=== PATIENT | female | born 1935 | race Caucasian/White ===

== ENCOUNTER 2016-11-10 15:54 | Emergency (ER) | payer OTHER, BC ==
[~2016-11-10] VITALS: Ht 167.6 cm; Wt 55.9 kg
[~2016-11-10 15:54] MED LIST: ASPIR 8181 M1 PO; ATENOLOL25 MG PO; CALCIUM 500 +1 EACH PO; CYANOCOBALAM1000 MCG PO; MECLIZINE HCL25 MG PO; SIMVASTATIN10 MG PO; VITAMIN D1000 INTUN PO; VYTORIN 10-201 EACH PO
[2016-11-10] MEDS ORDERED: DONEPEZIL HCL10 MG PO (16:35)
[2016-11-10 17:36] LABS: CHLORIDE 104 mEq/L (99-109); POTASSIUM 3.9 mEq/L (3.7-5.4); SODIUM 140 mEq/L (136-147)
[2016-11-10 17:38] LABS: GLUCOSE 96 mg/dL (70-99)
[2016-11-10 17:40] LABS: ANION GAP 10 MEQ/L (2-14); TOTAL BILIRUBIN 0.5 mg/dL (0.0-1.0)
[2016-11-10 17:42] LABS: ALKALINE PHOSPHATASE 61 IU/L (3-129); GFR ESTIMATE (CALCULATED) > 59 mL/min/
[2016-11-10 17:43] LABS: UREA NITROGEN (BUN) 20 mg/dL (9-23)
[2016-11-10 17:45] LABS: LIPASE 7 U/L (1.0-51.0)
[2016-11-10 17:49] LABS: TROP-I INTERPRETATION NEGATIVE; TROPONIN-I < 0.01 ng/mL (0.0-0.30)
[2016-11-10 18:54] LABS: HEMATOCRIT 45.5 % (36.0-46.0); MCH 32.1 PG (29.0-34.0); MCHC 32.7 G/DL (30.0-36.0); MCV 98.1 FL (83-99); PLATELET COUNT 213 K/uL (156-360); RBC DIS.WIDTH-CV 13.4 % (11.8-14.6); RBC DIS.WIDTH-SD 48.6 % (39-53); RED BLOOD COUNT 4.64 M/uL (3.80-5.20); WHITE BLOOD COUNT 7.2 K/uL (4.1-10.2)
[2016-11-10 19:28] LABS: ADD MIUA? YES; BILIRUBIN NEGATIVE; BLOOD SMALL; COLOR AMBER ((YELLOW)); GLUCOSE (STRIP) NEGATIVE; KETONES 20; LEUKOCYTES MODERATE; NITRITE NEGATIVE; PROTEIN (STRIP) 100; SPECIFIC GRAVITY 1.024 (1.000-1.030); UROBILINOGEN 0.2 MG/DL (0.2-1.0)
[2016-11-10] MEDS ORDERED: CIPRO500 MG PO (19:43)
[2016-11-10] MEDS ORDERED: ZOFRAN4 MG PO (19:43)
[2016-11-10 19:52] LABS: RED BLOOD CELLS 0-5 /HPF (0-5)
[2016-11-10 19:53] LABS: EPITHELIAL CELLS 1+ /HPF; MUCUS 3+ /LPF; WHITE BLOOD CELLS 15-20 /HPF (0-5)
[2016-11-10 19:54] LABS: BACTERIA RARE /HPF; CASTS NONE SEEN /LPF; CRYSTALS NONE SEEN
[2016-11-10 20:05] VITALS: BP 174/79
== END 2016-11-10 20:05 | disposition home or self-care (01) ==
LOC: EME 15:54
PROVIDERS: Physician Assistant
DX: N39.0 Urinary tract infection, site not specified (principal); I10 Essential (primary) hypertension; E78.5 Hyperlipidemia, unspecified
CPT/HCPCS: 71020; 80053; 81003; 83690; 84484; 85027; 93005; 99281; 99285; J7030